=== PATIENT | male | born 1970 | race Caucasian/White ===

== ENCOUNTER 2019-08-27 08:15 | Day surgery (SDC) | payer OTHER ==
[~2019-08-27 08:15] MED LIST: Lactated Ringers 1,000 ML IV SCH; Lidocaine 2% 5 ML SDV ONE; Midazolam 1 MG/ML 2 ML SDV ONE; Propofol 200 MG/20 ML SDV ONE; fentaNYL 100 MCG/2 ML SDV ONE
[2019-08-27] MEDS ORDERED: Lactated Ringers 1,000 ML IV SCH (08:45)
--- NOTE | 2019-08-27 08:59 | PCM.PREANE ---
Preanesthetic Assessment - Anesthesia/Transfusion/Family Hx Anesthesia History: Prior Anesthesia Without Reaction Other Type of Anesthesia Reaction Comment: states his BP was low with fx finger repair Family History of Anesthesia Reaction: No Transfusion History: No Prior Transfusion(s) Intubation History: Unknown - Review of Systems General: No Symptoms Pulmonary: No Symptoms Cardiovascular: No Symptoms Gastrointestinal: No Symptoms, Other (h/o colon polyp) Neurological: No Symptoms Other: Reports: None - Physical Assessment Vital Signs: Last Vital Signs Temp 36.7 C 08/27/19 08:51 Pulse 70 08/27/19 08:51 Resp 16 08/27/19 08:51 BP 129/89 08/27/19 08:51 Pulse Ox 99 08/27/19 08:51 Height: 6 ft 1 in Weight: 93.44 kg ASA Class: 2 Mental Status: Alert & Oriented x3 Airway Class: Mallampati = 2 Dentition: Reports: Normal Dentition Thyro-Mental Finger Breadths: 3 Mouth Opening Finger Breadths: 2 (small mouth opening) ROM/Head Extension: Full Lungs: Clear to Auscultation, Normal Respiratory Effort Cardiovascular: Regular Rate, Regular Rhythm - Allergies Allergies/Adverse Reactions: Allergies Allergy/AdvReac Type Severity Reaction Status Date / Time amoxicillin Allergy Swelling/ra Verified 08/27/19 08:44 sh simvastatin [From Zocor] Allergy Nausea and Verified 08/27/19 08:44 Vomiting - Blood Blood Available: No - Anesthesia Plan Pre-Op Medication Ordered: None - Acknowledgements Anesthesia Type Planned: MAC Pt an Appropriate Candidate for the Planned Anesthesia: Yes Alternatives and Risks of Anesthesia Discussed w Pt/Guardian: Yes Pt/Guardian Understands and Agrees with Anesthesia Plan: Yes PreAnesthesia Questionnaire HEENT History: Reports: None Other HEENT History: wears glasses, has brad hearing aids Cardiovascular History: Reports: High Cholesterol, Hypertension Respiratory History: Reports: None Gastrointestinal History: Reports: Colon Polyp, GERD, Hiatal Hernia Genitourinary History: Reports: None Musculoskeletal History: Reports: Fracture, Other (See Below) Other Musculoskeletal History: hx fx collarbone Neurological History: Reports: Migraines Psychiatric History: Reports: Anxiety, Depression Endocrine/Metabolic History: Reports: None Hematologic History: Reports: None Immunologic History: Reports: None Oncologic (Cancer) History: Reports: None Dermatologic History: Reports: None - Past Surgical History Head Surgeries/Procedures: Reports: None HEENT Surgical History: Reports: None Cardiovascular Surgical History: Reports: None Respiratory Surgical History: Reports: None GI Surgical History: Reports: Colonoscopy (last one 3 years ago), Hernia, Inguinal (bilateral), Other (See Below) Other GI Surgeries/Procedures: brad inguinal hernia repair Male Surgical History: Reports: None Endocrine Surgical History: Reports: None Neurological Surgical History: Reports: None Musculoskeletal Surgical History: Reports: Other (See Below) Other Musculoskeletal Surgeries/Procedures:: tendon repair rt pinky finger Oncologic Surgical History: Reports: None Dermatological Surgical History: Reports: None - SUBSTANCE USE Smoking Status *Q: Former Smoker (quit ') Tobacco Use Within Last Twelve Months: No - HOME MEDS Home Medications: Home Meds Aspirin [Gearhart Aspirin EC] 81 mg PO DAILY 04/09/16 [History] Omeprazole 20 mg PO BID 04/09/16 [History] Venlafaxine HCl [Venlafaxine HCl ER] 75 mg PO DAILY 04/09/16 [History] atorvaSTATin Calcium [Atorvastatin Calcium] 10 mg PO DAILY 04/09/16 [History] amLODIPine Besylate [Amlodipine Besylate] 10 mg PO DAILY 08/23/19 [History] - CURRENT (IN HOUSE) MEDS Current Meds: Current Medications Lactated Ringer's (Ringers, Lactated) 1,000 mls @ 125 mls/hr IV ASDIRECTED [facility] Last Admin: 08/27/19 08:44 Dose: 125 mls/hr Documented by: Lactated Ringer's (Ringers, Lactated) 1,000 mls @ 125 mls/hr IV ASDIRECTED [facility] Discontinued Medications Fentanyl (Sublimaze) Confirm Administered Dose 100 mcg .ROUTE .STK-MED ONE Stop: 08/27/19 07:12 Lidocaine (Xylocaine-Mpf 2%) Confirm Administered Dose 5 ml .ROUTE .STK-MED ONE Stop: 08/27/19 07:11 Midazolam HCl (Versed 1 Mg/Ml) Confirm Administered Dose 2 mg .ROUTE .STK-MED ONE Stop: 08/27/19 07:12 Propofol (Diprivan 20 Ml) Confirm Administered Dose 400 mg .ROUTE .STK-MED ONE Stop: 08/27/19 07:11
--- NOTE | 2019-08-27 10:01 | PCM.OPNOTE ---
- General Post-Op/Procedure Note Date of Surgery/Procedure: 08/27/19 Operative Procedure(s): egd w bx. colonoscopy w bx Findings: see [id number] Pre Op Diagnosis: gerd and hx of colon polyp Post-Op Diagnosis: Same Anesthesia Technique: Moderate Sedation Primary Surgeon: Isra Nelson Pathology: sent Complications: None Condition: Good
--- NOTE | 2019-08-27 10:24 | PCM.POSTAN ---
POST ANESTHESIA ASSESSMENT - MENTAL STATUS Mental Status: Alert, Oriented - VITAL SIGNS Vital Signs: Last Vital Signs Temp 36.1 C 08/27/19 09:57 Pulse 88 08/27/19 10:17 Resp 11 L 08/27/19 10:17 BP 115/85 08/27/19 10:17 Pulse Ox 96 08/27/19 10:17 - RESPIRATORY Respiratory Status: Respiratory Rate WNL, Airway Patent, O2 Saturation Stable - CARDIOVASCULAR CV Status: Pulse Rate WNL, Blood Pressure Stable - GASTROINTESTINAL GI Status: No Symptoms - PAIN Pain Score: 0 - POST OP HYDRATION Hydration Status: Adequate & Stable - OBSERVATIONS Free Text/Narrative:: No anesthesia problems
--- NOTE | 2019-08-27 10:45 | PCM48HPAN ---
Post Anesthesia Note - EVALUATION WITHIN 48HRS OF ANESTHETIC Vital Signs in Normal Range: Yes Patient Participated in Evaluation: Yes Respiratory Function Stable: Yes Airway Patent: Yes Cardiovascular Function Stable: Yes Hydration Status Stable: Yes Pain Control Satisfactory: Yes Nausea and Vomiting Control Satisfactory: Yes Mental Status Recovered: Yes Vital Signs: Last Vital Signs Temp 36.1 C 08/27/19 09:57 Pulse 88 08/27/19 10:17 Resp 11 L 08/27/19 10:17 BP 115/85 08/27/19 10:17 Pulse Ox 96 08/27/19 10:17 - COMMENTS/OBSERVATIONS Free Text/Narrative:: No anesthesia problems
[2019-08-27 11:26] VITALS: BP 117/84; PULSE 79
--- NOTE | 2019-08-27 14:01 | OR ---
SURGEON: Isra Nelson MD DATE OF PROCEDURE: 08/27/2019 PREOPERATIVE DIAGNOSES: History of colon polyp and gastroesophageal reflux disease. POSTOPERATIVE DIAGNOSES: History of colon polyp and gastroesophageal reflux disease. PROCEDURES PERFORMED: Esophagogastroduodenoscopy with biopsy and colonoscopy with biopsy. DESCRIPTION OF PROCEDURE: EGD: The patient was taken to the endoscopy room, and with the TIPPING MACHINE OPERATOR, Diprivan was administered. A well-lubricated EGD scope was gently inserted through the oropharynx, down the esophagus, passing through the gastroesophageal junction, into the stomach. The mucosa was examined upon the passage. Any etiology will be noted. Once in the stomach, we continued to advance to the distal antrum, passed through the pylorus into the second portion of the duodenum. Again, the mucosa was examined for any abnormality and etiology. The scope was then retrieved back to the stomach and then retroflexed to look at the fundus of the stomach. If a biopsy was indicated, we will biopsy the antrum, body, and gastroesophageal junction. The air will be sucked out while the scope is retrieved to reduce the patient's discomfort. The patient tolerated the procedure well. There were no intraoperative complications. Dr. Nelson was present through the whole procedure. Prior to surgery, a time-out had been called, the patient identified, procedure identified and antibiotic administered. The patient was taken to the endoscopy room. A time out was called, patient identified, and procedure identified. Diprivan was then administrated. Patient went from awake to sleep, hearing doctor talking or door closing is normal. Perineum inspection and digital examination were then performed. A well- lubricated colonoscope was gently inserted through the rectum, advanced past the rectosigmoid junction, the descending colon, splenic flexure, transverse colon, hepatic flexure, ascending colon, arrived to the cecum. Cecum was identified as dictated in the finding. Then the scope was carefully withdrawn while attention was paid to the mucosal surface for any abnormality. Air will be sucked out during the scope withdrawal. At the rectum, retroflexed to examine any rectal diseases, fistula or hemorrhoids. During mucosal examination, abnormality or polyp was noted; picture taken and biopsy performed. Patient tolerated procedure well. There were no intraoperative complications, and Dr. Nelson was present throughout the whole procedure. FINDINGS: EGD findings: 1. The patient is easily sedated with TIPPING MACHINE OPERATOR and Diprivan, the patient is soundly snoring. 2. Oropharynx and proximal esophagus are free of disease, stricture, or inflammation. Distal esophagus at GE junction at 35 shows mild salmon- colored change such as a little bit acid reflux. Rugae are normal in appearance. Antrum is normal in appearance. Duodenum is grossly normal. Retroflexed look at the fundus of the stomach, the patient has a small hiatal hernia and also a fundal polyp that was biopsied. Then, biopsy done at antrum, body, GE junction at 40 and sucked out the gas while scope pulling out. During the whole study, there is no blood, ulcer, bile, or food observed. Colonoscopy findings: 1. The patient is easily sedated with TIPPING MACHINE OPERATOR and Diprivan, the patient is soundly snoring. 2. Bowel prep is average with some liquid stool, no semi-formed stool. 3. Colon rather straightforward. Cecum indicated by ileocecal fold, one-to-one indentation, light emittance, and appendiceal orifice. ScopeGuide is pointing south. Mucosa examined upon scope pulling out. The patient has mild diverticulosis on the left colon. No signs or symptoms of diverticulitis and also had one small polyp at distance 125 when scope pulling out, 3 mm sessile polyp, removed with cold biopsy forceps. There is no other growth, inflammation, stricture, AV malformation, bleeding noted. The patient has some mild internal hemorrhoids. The patient does not have external hemorrhoids. The patient would benefit from repeat colonoscopy in 3 years from today because of a history of colon polyp or if clinically indicated otherwise or if the pathology of the polyp indicated otherwise. IZZY / BETHANY /[id number]
== END 2019-08-27 10:53 | disposition home or self-care (01) ==
LOC: MW.SDS 08:15
PROVIDERS: ATTEND Surgery
DX: Z12.11 Encounter for screening for malignant neoplasm of colon (principal); D12.6 Benign neoplasm of colon, unspecified; K21.9 Gastro-esophageal reflux disease without esophagitis; K44.9 Diaphragmatic hernia without obstruction or gangrene; K64.8 Other hemorrhoids; K31.7 Polyp of stomach and duodenum; K57.30 Diverticulosis of large intestine without perforation or abscess without bleeding; E78.00 Pure hypercholesterolemia, unspecified; I10 Essential (primary) hypertension; F41.9 Anxiety disorder, unspecified; F32.9 Major depressive disorder, single episode, unspecified; Z88.0 Allergy status to penicillin; Z88.8 Allergy status to other drugs, medicaments and biological substances; Z87.891 Personal history of nicotine dependence; Z79.899 Other long term (current) drug therapy; Z79.82 Long term (current) use of aspirin; Z98.890 Other specified postprocedural states; Z86.010 Personal history of colon polyps
CPT/HCPCS: 43239; 45380; J2001; J2250; J2704; J3010; J7120

== ENCOUNTER 2023-03-17 08:25 | Day surgery (SDC) | payer OTHER ==
[~2023-03-17 08:25] MED LIST changes: -Lidocaine 2% 5 ML SDV ONE; -Midazolam 1 MG/ML 2 ML SDV ONE; -Propofol 200 MG/20 ML SDV ONE; +ceFAZolin 2 GM in Sodium Chloride 0.9% 50 ML IV ONE; -fentaNYL 100 MCG/2 ML SDV ONE
[2023-03-17] MEDS ORDERED: Propofol 200 MG/20 ML SDV ONE (08:44)
[2023-03-17] MEDS ORDERED: fentaNYL 250 MCG/5 ML SDV ONE (08:44)
[2023-03-17] MEDS ORDERED: Morphine 2 MG/ML SYRINGE IVPUSH PRN (09:12)
[2023-03-17] MEDS ORDERED: Ondansetron 4 MG/2 ML SDV IVPUSH PRN (09:12)
[2023-03-17] MEDS ORDERED: HYDROmorphone 1 MG/ML Syringe IVPUSH PRN (09:12)
[2023-03-17] MEDS ORDERED: droPERidol 5 MG/2 ML SDV IVPUSH PRN (09:12)
[2023-03-17] MEDS ORDERED: Albuterol 0.083% 2.5 MG/3 ML Neb Soln NEB PRN (09:12)
[2023-03-17] MEDS ORDERED: Naloxone 0.4 MG/ML SDV IVPUSH PRN (09:12)
[2023-03-17] MEDS ORDERED: fentaNYL 50 MCG/ML SDV IVPUSH PRN (09:12)
[2023-03-17] MEDS ORDERED: Metoclopramide 10 MG/2 ML SDV IVPUSH PRN (09:12)
[2023-03-17] MEDS ORDERED: Bupivacaine 0.25% 30 ML SDV ONE (09:24)
[2023-03-17] MEDS ORDERED: Ropivacaine 0.5% 5 MG/ML 30 ML SDV ONE (09:24)
[2023-03-17] MEDS ORDERED: Bupivacaine 0.5% 30 ML SDV ONE (09:25)
[2023-03-17] MEDS ORDERED: ceFAZolin 1 GM Vial ONE (09:28)
[2023-03-17] MEDS ORDERED: Rocuronium Bromide 50 MG/5 ML Syringe ONE ×2 (09:36→11:07)
[2023-03-17] MEDS ORDERED: Dexamethasone 4 MG/ML 5 ML MDV ONE (09:50)
[2023-03-17] MEDS ORDERED: ceFAZolin 2 GM Vial ONE (09:54)
[2023-03-17] MEDS ORDERED: Phenylephrine HCl 0.5 MG/5 ML AMP ONE (11:21)
[2023-03-17] MEDS ORDERED: Sugammadex Sodium 200 MG/2 ML VIAL ONE (11:40)
[2023-03-17] MEDS ORDERED: Ondansetron 4 MG/2 ML SDV ONE (11:50)
[2023-03-17] MEDS ORDERED: Ketorolac 30 MG/ML SDV ONE (11:50)
[2023-03-17] MEDS ORDERED: Morphine 4 MG/ML Syringe IVPUSH PRN (12:13)
[2023-03-17] MEDS ORDERED: Acetaminophen/HYDROcodone 325-5 MG Tab PO PRN (12:13)
[2023-03-17] MEDS ORDERED: Lactated Ringers 1,000 ML IV SCH (12:15)
[2023-03-17 12:23] VITALS: PULSE 84
[2023-03-17 13:38] VITALS: BP 118/73
== END 2023-03-17 13:25 | disposition home or self-care (01) ==
LOC: MW.SDS 08:25
PROVIDERS: ATTEND Surgery
DX: K40.21 Bilateral inguinal hernia, without obstruction or gangrene, recurrent (principal); F32.A Depression, unspecified; M72.0 Palmar fascial fibromatosis [Dupuytren]; K21.9 Gastro-esophageal reflux disease without esophagitis; I10 Essential (primary) hypertension; E78.00 Pure hypercholesterolemia, unspecified; K57.30 Diverticulosis of large intestine without perforation or abscess without bleeding; Z79.899 Other long term (current) drug therapy; Z88.0 Allergy status to penicillin
CPT/HCPCS: 49520; 64488; J0131; J0665; J0690; J1100; J1885; J2371; J2405; J2704; J2795; J3010; J3490; J7120